=== PATIENT | female | born 1930 | race Caucasian/White ===

== ENCOUNTER → 2016-12-24 | Outpatient (CLI) | payer MEDICARE ==
[~2016-12-24] MED LIST: /BACIOPOI; CATA0.2D3; CIPR-249 PO; COLA100C2; COLA100C5 PO; FLUC10TA PO; HYDR25TA6; HYDR25TA7; HYDR25TAB PO; LOPR100T; LORT5TAB PO; MILKSUS; MOM30SS PO; PRIN20TA3; THERGRAN; TYLE325T5 PO; VASO20TA; VICO5TAB; [UNRECOGNIZED DRUG - OTHER]; hydralazine
--- NOTE | 2016-12-24 14:17 | REP ---
Right tibia-fibula two views : There is no fracture or dislocation. Mineralization and joint spaces are normal. There are no calcifications or foreign bodies. Impression: Negative Right tibia-fibula . Signed by Dioni Sheppard MD 12/24/2016 02:08 P
== END ==
LOC: M ADAMS 13:07
PROVIDERS: ATTEND Physician Assistant
DX: S80.11XA Contusion of right lower leg, initial encounter (principal); X58.XXXA Exposure to other specified factors, initial encounter; Y92.89 Other specified places as the place of occurrence of the external cause; Y99.9 Unspecified external cause status; Y93.9 Activity, unspecified

== ENCOUNTER → 2017-07-12 | Outpatient (CLI) | payer MEDICARE | LOC: M WHC 12:49 | DX: Z12.31 Encounter for screening mammogram for malignant neoplasm of breast (principal) | CPT/HCPCS: 77067 ==

== ENCOUNTER → 2018-02-27 | Outpatient (REF) | payer MEDICARE | LOC: M SFHCPLAZ 16:57 | PROVIDERS: ATTEND Dermatology | DX: D48.5 Neoplasm of uncertain behavior of skin (principal); L57.0 Actinic keratosis ==

== ENCOUNTER → 2018-04-07 | Outpatient (REF) | payer MEDICARE | LOC: M SFHCADAM 09:23 | PROVIDERS: ATTEND Family Medicine | DX: I10 Essential (primary) hypertension (principal) ==

== ENCOUNTER → 2018-04-15 | Outpatient (REF) | payer MEDICARE ==
[2018-04-15 12:51] LABS: BASO % 0.5 % (0.0-1.0); EOS # 0.1 10^3/uL (0.0-0.50); EOS % 3.2 % (0.0-3.0); HEMATOCRIT 40.5 % (36.0-47.0); HEMOGLOBIN 13.4 g/dl (12.0-15.5); LYMPH # 0.7 10^3/uL (1.5-4.5); MEAN CORPUSCULAR HEMOGLOBIN 30.9 pg (27.0-33.0); MEAN CORPUSCULAR HGB CONC 33.1 g/dl (32.0-36.5); MEAN CORPUSCULAR VOLUME 93.5 fl (80.0-96.0); MONO # 0.4 10^3/uL (0.0-0.8); MONO % 9.3 % (0.0-5.0); NEUTROPHILS # 2.8 10^3/uL (1.8-7.7); NEUTROPHILS % 68.8 % (36.0-66.0); PLATELET COUNT, AUTOMATED 166 10^3/uL (150-450); RED BLOOD COUNT 4.33 10^6/uL (4.00-5.40); WHITE BLOOD COUNT 4.1 10^3/uL (4.0-10.0)
[2018-04-15 12:55] LABS: ALBUMIN 3.6 GM/DL (3.2-5.2); BILIRUBIN,TOTAL 0.7 MG/DL (0.2-1.0); CALCIUM LEVEL 8.8 MG/DL (8.8-10.2); CHOLESTEROL RISK RATIO 3.41 (<5); CREATININE FOR GFR 1.14 MG/DL (0.55-1.30); GLOMERULAR FILTRATION RATE 47.9 (>32); POTASSIUM SERUM 3.8 MEQ/L (3.5-5.1); TOTAL PROTEIN 6.3 GM/DL (6.4-8.2)
== END ==
LOC: M SFHCADAM 12:09
PROVIDERS: ATTEND Family Medicine
DX: I10 Essential (primary) hypertension (principal)

== ENCOUNTER → 2018-06-03 | Outpatient (REF) | payer MEDICARE ==
[~2018-06-03] MED LIST changes: +HYDR-2541 PO; -HYDR25TAB PO
== END ==
LOC: M SFHCPLAZ 09:52
PROVIDERS: ATTEND Dermatology
DX: C44.42 Squamous cell carcinoma of skin of scalp and neck (principal)

== ENCOUNTER → 2018-09-26 | Outpatient (REF) | payer MEDICARE | LOC: M SFHCPLAZ 16:48 | PROVIDERS: ATTEND Dermatology | DX: C44.320 Squamous cell carcinoma of skin of unspecified parts of face (principal); L57.0 Actinic keratosis ==

== ENCOUNTER → 2018-10-17 | Outpatient (CLI) | payer MEDICARE ==
--- NOTE | 2018-10-17 14:32 | REP ---
BILATERAL SCREENING DIGITAL MAMMOGRAM WITH 3D TOMOSYNTHESIS: There are no palpable abnormalities or other breast complaints. The the patient states she has not had a clinical breast examination over a year. The the patient states she performs self-breast examinations 12 times per year. The Tyrer-Cuzick Score is: NA. The patient has a history of left breast carcinoma in 2004. Comparison studies are 07/12/2017, 03/12/2016 and 03/23/2014. There are scattered areas of fibroglandular density. There are stable postsurgical changes in the left breast. There is chronic retraction of the right nipple, unchanged from all prior studies. There is a new 3 ml nodule inferolaterally in the right breast as an interval change. Impression: BIRADS/ACR category 0 mammogram. Incomplete . Additional imaging evaluation is needed. Recommendation: The the patient should return for spot magnification mammograms of the right breast and right breast ultrasound. This mammogram was interpreted with the aid of a FDA approved computer-aided detection system. A. Negative mammogram reports should not delay biopsy if a dominant or clinically suspicious mass is present. B. Not all breast cancers are identified by mammography or tomosynthesis. C. Adenosis and dense breasts may obscure an underlying neoplasm. Patient letter M0. Electronically Signed by Dioni Shpepard MD 10/17/2018 02:23 P
== END ==
LOC: M WHC 12:55
PROVIDERS: ATTEND Family Medicine
DX: R92.2 Inconclusive mammogram (principal)

== ENCOUNTER → 2018-10-24 | Outpatient (CLI) | payer MEDICARE ==
--- NOTE | 2018-10-24 12:37 | REP ---
Diagnostic right breast mammogram and right breast ultrasound: The study is correlated with the recent screening mammogram dated 10/17/2018. Spot magnification mammogram views of the right breast reveal the 3 mm nodule is persistent. Therefore, ultrasound is performed. Right breast ultrasound: The ultrasound demonstrates a tiny 3 ml hypoechoic nodule at the 89 o'clock location. The lesion is too small for accurate characterization of cystic versus solid by ultrasound. It appears to be sharply circumscribed. Impression: BIRADS category 3. Probably benign right breast 3 mm nodule. Follow-up right breast mammography and ultrasound in 6 months is recommended for further evaluation. The lesion is too small for accurate characterization by MRI. Electronically Signed by Dioni Sheppard MD 10/24/2018 12:30 P
--- NOTE | 2018-10-24 12:39 | REP ---
Diagnostic right breast mammogram and right breast ultrasound: The study is correlated with the recent screening mammogram of 10/17/2018. The spot magnification views of the right breast laterally again ,identify the 3 mm nodular density that was originally identified on the screening mammogram. Therefore, ultrasound is performed. Please refer to the ultrasound report for further information and followup recommendations. Electronically Signed by Dioni Sheppard MD 10/24/2018 12:32 P
== END ==
LOC: M RAD 10:42
PROVIDERS: ATTEND Family Medicine
DX: Z12.39 Encounter for other screening for malignant neoplasm of breast (principal); N63.10 Unspecified lump in the right breast, unspecified quadrant

== ENCOUNTER → 2019-04-27 | Outpatient (CLI) | payer MEDICARE ==
--- NOTE | 2019-04-27 14:44 | REP ---
Digital diagnostic right breast mammography with CAD and focused right breast sonography: History: 6 month followup BIRADS category 3 right breast imaging October 24, 2018. Mammographic findings: Routine views of the right breast are augmented by magnified focal spot compression views in the craniocaudal, mediolateral, and mediolateral oblique projection. These demonstrate predominately fat replaced breast parenchyma with mild scattered fibroglandular density. The previously noted 3 mm nodule is much less conspicuous and arguably resolved today. No progressive change is seen. Vascular calcifications again noted. No neodensity is seen. No mammographically suspicious finding. Sonographic findings: The right breast is examined from 9 o'clock 12 o'clock. Heterogeneous fibroglandular background echotexture is seen. No sonographically suspicious lesion is seen. No cyst is identified. Impression: BIRADS 2: BI-RADS/ACR category 2 mammogram. Benign Findings. BIRADS category 2 benign findings. Repeat screening bilateral mammography recommended in November 12, 2019. This mammogram was interpreted with the aid of an FDA-approved computer-aided detection system. The patient states that she/he has not had a clinical breast exam in over a year. The patient letter being requested is m1. Electronically Signed by Carlos Shipman MD 04/27/2019 03:21 P
== END ==
LOC: M RAD 11:55
PROVIDERS: ATTEND Family Medicine
DX: R92.8 Other abnormal and inconclusive findings on diagnostic imaging of breast (principal)
CPT/HCPCS: 76642; 77065; G0279